=== PATIENT | female | born 1970 | race Two or more races ===

== ENCOUNTER 2023-08-02 15:25 | Outpatient (CLI) | payer OTHER | END 2023-08-02 15:42 | disposition home or self-care (01) | LOC: SONOGRAMA 15:25 | PROVIDERS: ATTEND Internal Medicine | DX: E89.0 Postprocedural hypothyroidism (principal) ==

== ENCOUNTER → 2023-08-07 | Outpatient (CLI) | payer OTHER | END | disposition home or self-care (01) | LOC: MAMO-SONO 13:43 | PROVIDERS: ATTEND Internal Medicine | DX: N60.11 Diffuse cystic mastopathy of right breast (principal); N60.12 Diffuse cystic mastopathy of left breast; Z12.31 Encounter for screening mammogram for malignant neoplasm of breast ==